=== PATIENT | male | born 1965 | race Caucasian/White ===

== ENCOUNTER 2019-06-17 16:46 | Emergency (ER) | payer OTHER, SELFPAY ==
[2019-06-17 16:55] VITALS: BP 139/78; PULSE 60; RESP 18; TEMP 36.6; O2SAT 98; BMI 28.0
[2019-06-17 19:03] VITALS: BP 151/90; PULSE 60; RESP 16; O2SAT 99
--- NOTE | 2019-06-18 01:14 | ED_ITS ---
HPI - Ear Problem General Chief complaint: Ear Stated complaint: pain in left ear Time Seen by Provider: 06/17/19 18:04 Source: patient Mode of arrival: ambulatory Limitations: no limitations History of Present Illness HPI Narrative: 53-year-old male nonsmoker with benign medical history presents with a chief complaint of left ear pain for the past few days. He denies runny nose, sneezing or cough. He denies any fever chills. He denies flying or diving. He denies any trauma. He does admit to some occipital pain behind the ear that had resolved a few days ago. He states symptoms seem to improved after he took 1 dose of Sudafed and some anti-inflammatories. MD Complaint: ear pain Location: left ear Duration: resolved Severity: mild Relieving factors: NDAIDs Exacerbating factors: nothing Discharge from ear: no Treatment prior to arrival: none Related Data Home Medications Medication Instructions Recorded Confirmed No Known Home Medications 06/17/19 06/17/19 Allergies Allergy/AdvReac Type Severity Reaction Status Date / Time No Known Allergies Allergy Uncoded 06/17/19 17:05 Review of Systems Constitutional Denies chills, Denies fever(s), Denies lethargy and Denies weakness Eyes Denies change in vision, Denies eye discharge, Denies irritation and Denies loss of vision ENT Ears, Nose, Mouth, and Throat: Denies change in voice, Reports otalgia, Denies neck pain and Denies sore throat Cardiovascular Denies chest pain, Denies irregular heart rhythm, Denies lightheadedness, Denies palpitations, Denies dyspnea, Denies dyspnea on exertion and Denies orthopnea Respiratory Denies cough, Denies dyspnea, Denies dyspnea on exertion and Denies wheezing Gastrointestinal Gastrointestinal: Denies abdominal pain, Denies change in bowel habits, Denies diarrhea, Denies nausea and Denies vomiting Genitourinary Denies hematuria, Denies flank pain, Denies urinary incontinence and Denies urinary urgency Musculoskeletal Denies neck pain Integumentary/Breasts Denies pruritus, Denies erythema, Denies rash and Denies wounds Neurologic Denies confusion, Denies loss of vision and Denies weakness Psychiatric Denies anxiety, Denies confusion, Denies depression, Denies homicidal ideation and Denies suicidal ideation Endocrine Denies palpitations Hematologic/Lymphatic Denies easy bruising Allergic/Immunologic Denies wheezing Exam Narrative Exam Narrative: GEN: AOx3 and in mild distress EYES: Pupils are equal, round, and reactive to light and accommodation. Extraoccular muscles are intact bilaterally. There is no subconjunctival hemorrhage or exudate. ENT: Tympanic membranes bilaterally are clear, flat with normal landmarks and cone of light. No erythema, exudate or purulence. No tenderness to palpation of mastoid air cells. No lymphadenopathy CHEST: Lungs are clear to auscultation bilaterally and free of wheezes, rales, or rhonchi. Heart rate is regular rhythm, there are no murmurs, clicks, rubs, or gallops. There is no chest wall tenderness. ABD: Abdomen is soft and nontender. There is no guarding or rebound. Bowel sounds are normal in all 4 quadrants. There is no mass or organomegaly. EXT: Full painless ROM of all extremities with no loss of sensation or strength. SKIN: Warm, pink, and dry. No erythema or rash Initial Vital Signs Initial Vital Signs: Vital Signs Temperature 97.8 F 06/17/19 16:55 Pulse Rate 60 06/17/19 16:55 Respiratory Rate 18 06/17/19 16:55 Blood Pressure 139/78 06/17/19 16:55 Pulse Oximetry 98 06/17/19 16:55 Course Vital Signs - 8 hr 06/17/19 19:03 Pulse Rate 60 Respiratory Rate 16 Blood Pressure [Left Arm] 151/90 H Pulse Oximetry 99 Medical Decision Making MDM Narrative Medical decision making narrative: Multiple etiologies of ear pain including otitis externa, otitis media, mastoiditis, tension headache, subarachnoid hemorrhage, of paraspinal muscle strain versus other. Discharge Plan Departure Patient Disposition: Home Clinical Impression: Headache Qualifiers: Headache type: unspecified Headache chronicity pattern: acute headache Intractability: not intractable Qualified Code(s): R51 - Headache Acute otalgia Qualifiers: Laterality: left Qualified Code(s): H92.02 - Otalgia, left ear Discharge Date/Time: 06/17/19 19:04 Instructions: DI for Ear Pain-Adult Activity Restrictions/Additional Instructions: Please take the following over the counter medications to help your pain 1. Motrin 600mg by mouth every 6-8 hours for pain and inflammation 2. Pseduoephedrine - over the counter decongestant. As directed on the package 3. Zyrtec, Kathy, or Claritin to dry secretions. Take as directed on the package. Please follow up with your doctor in 2-3 days, let them know you were seen in the Emergency Department and we want you to be seen in follow up. Return to Emergency for worsening pain, fever over 101F, rash/redness/swelling of your ear, vomiting, or other bothersome symptoms Prescriptions: No Action No Known Home Medications RF: 0 Referrals: [facility] [Outside]
== END 2019-06-17 19:04 | disposition home or self-care (01) ==
PROVIDERS: Emergency Provider Emergency Medicine
DX: R51 Headache (principal); H92.02 Otalgia, left ear
CPT/HCPCS: 99282

== ENCOUNTER 2021-05-02 21:34 | Emergency (ER) | payer OTHER, SELFPAY ==
[2021-05-02 21:44] VITALS: BP 165/93; PULSE 75; RESP 18; TEMP 36.6; O2SAT 97; BMI 28.0
--- NOTE | 2021-05-02 21:57 | ED_ITS ---
HPI - Skin/Abscess/Foreign Bdy General Chief complaint: Skin/Abscess/Foreign Body Stated complaint: something on chest Time Seen by Provider: 05/02/21 21:39 Source: patient Mode of arrival: Ambulatory Limitations: no limitations History of Present Illness HPI narrative: Patient is a 55-year-old male who presents with take on chest. He is unsure how long it has been there possibly 5 to cold days. He is from [place] it is unclear if it came from [place] or from the [facility]. He would like it removed. He denies any other symptoms. MD complaint: insect bite/sting Onset (ago): unknown Tetanus up to date: yes Location: chest Pain Consistency: constant Related Data Previous Rx's Medication Instructions Recorded doxycycline hyclate 100 mg PO BID #20 cap 05/02/21 Allergies Allergy/AdvReac Type Severity Reaction Status Date / Time No Known Allergies Allergy Uncoded 06/17/19 17:05 Review of Systems Review of Systems Narrative: GENERAL: Denies chills,fever HEENT: Denies throat pain RESPIRATORY: Denies dyspnea, cough, wheezing CARDIOVASCULAR: Denies chest pain, palpitations GASTROINTESTINAL: Denies nausea, vomiting MUSCULOSKELETAL: Denies extremity pain, injury SKIN: See HPI NEUROLOGIC: Denies weakness, dizziness, headache, numbness 8 point review of systems is negative except for those stated above and HPI Patient History Social History Smoking Status: Never smoker Smoking Status: Never smoker alcohol intake frequency: 0-2 drinks per day Substance Use Type: does not use Exam Initial Vital Signs Initial Vital Signs: Vital Signs Temperature 97.8 F 05/02/21 21:44 Pulse Rate 75 05/02/21 21:44 Respiratory Rate 18 05/02/21 21:44 Blood Pressure 165/93 H 05/02/21 21:44 Pulse Oximetry 97 05/02/21 21:44 GENERAL: Alert 55 year old male well-appearing CARDIOVASCULAR: peripheral pulses in tact, cap refill <2 sec RESPIRATORY: No respiratory distress, speaks in full sentences without difficulty EXTREMITIES: Normal range of motion, no clubbing or edema. Neurovascularly intact NEUROLOGICAL: Cranial nerves II through XII grossly intact. Normal gait and speech. SKIN: tick seen on right side chest Procedures Foreign Body OTHER Time Out Performed: yes Site: right Description of foreign body: other (tick) Sedation/Analgesia: none Technique: manual removal Confirmed by:: direct visualization Complications: none Post-procedure exam: awake, alert Neurovascular: normal distal pulse, normal capillary fill and distal light touch sensation intact Course Orders Ordered: Discontinued Medications Doxycycline Hyclate (Doxycycline Hyclate 100 Mg Tablet) 100 mg PO NOW ONE Stop: 05/02/21 21:58 Last Admin: 05/02/21 22:10 Dose: 100 mg Documented by: [email or web address] Vital Signs Vital signs: Vital Signs - 8 hr 05/02/21 21:44 05/02/21 22:17 Temperature 97.8 F Pulse Rate 75 67 Respiratory Rate 18 16 Blood Pressure 165/93 H 140/83 Pulse Oximetry 97 97 MDM - Skin/Abscess/Foreign Bdy MDM Narrative Medical decision making narrative: Tick was easily removed. It is unclear how long it was there. Patient will empirically be treated for Lyme disease with doxycycline. Discharge Plan Departure Patient Disposition: Home Clinical Impression: Tick bite of chest wall Qualifiers: Encounter type: initial encounter Laterality: right Qualified Code(s): S20.361A - Insect bite (nonvenomous) of right front wall of thorax, initial encounter Instructions: How to Remove a Tick, Protect Yourself from Tickborne Illnesses Activity Restrictions/Additional Instructions: *You have been diagnosed with tick bite *What to do: You will be started on antibiotics to help prevent Lyme disease *Continue to take medications as directed Doxycycline 100 mg twice a day for 10 days *Follow up with your primary care provider in 2-3 days *Return to ER if you should have worsening rash, fever, or any new, worsening or concerning symptoms Prescriptions: New doxycycline hyclate 100 mg capsule 100 mg PO BID Qty: 20 RF: 0
[2021-05-02] MEDS: DOXYCYCLINE HYCLATE 100 MG TABLET PO (22:10)
[2021-05-02 22:17] VITALS: BP 140/83; PULSE 67; RESP 16; O2SAT 97
== END 2021-05-02 22:00 | disposition home or self-care (01) ==
PROVIDERS: Emergency Provider Emergency Medicine
DX: S20.361A Insect bite (nonvenomous) of right front wall of thorax, initial encounter (principal); W57.XXXA Bitten or stung by nonvenomous insect and other nonvenomous arthropods, initial encounter
CPT/HCPCS: 99283